=== PATIENT | female | born 1980 | race Caucasian/White ===

== ENCOUNTER 2016-09-20 10:15 | Emergency (ER) | payer SELFPAY ==
[2016-09-20 11:18] VITALS: BP 114/75
--- NOTE | 2016-09-20 11:55 | UC ---
General HPI - HPI Summary HPI Summary: patient noticed a small lump uner the right axilla this morning. She denies any illness. patient is a long time smoker. - History of Current Complaint Chief Complaint: UCSkin Stated Complaint: LUMP UNDER ARM Time Seen by Provider: 09/20/16 11:39 Hx Obtained From: Patient Onset/Duration: Sudden Onset, Lasting Hours Timing: Constant Onset Severity: Mild Current Severity: Mild Pain Intensity: 4 Pain Location at: right axilla - Allergy/Home Medications Allergies/Adverse Reactions: Allergies Allergy/AdvReac Type Severity Reaction Status Date / Time environmental Allergy Unknown Uncoded 09/20/16 11:14 Reaction Details Home Medications: Home Medications NK [No Home Medications Reported] 09/20/16 [History Confirmed 09/20/16] PMH/Surg Hx/FS Hx/Imm Hx Previously Healthy: Yes Endocrine History Of: Denies: Diabetes, Thyroid Disease Cardiovascular History Of: Denies: Cardiac Disorders, Hypertension Respiratory History Of: Reports: Asthma Denies: COPD GI/ History Of: Denies: Ulcer - Surgical History Surgical History: Yes Surgery Procedure, Year, and Place: , 2008, [place]; T&A and Ear Tubes , ~1985, [place] - Family History Known Family History: Positive: Hypertension - Social History Alcohol Use: Rare Substance Use Type: None Smoking Status (MU): Heavy Every Day Tobacco Smoker Type: Cigarettes Amount Used/How Often: 1 PPD Length of Time of Smoking/Using Tobacco: 15 Years Have You Smoked in the Last Year: Yes - Immunization History Most Recent Influenza Vaccination: Not the 2015/2016 Season Review of Systems Constitutional: Negative Skin: Negative Eyes: Negative ENT: Negative Respiratory: Cough Cardiovascular: Negative, Other - lump under right arm Gastrointestinal: Negative Genitourinary: Negative Motor: Negative Neurovascular: Negative Musculoskeletal: Negative Neurological: Negative Psychological: Negative All Other Systems Reviewed And Are Negative: Yes Physical Exam Triage Information Reviewed: Yes Appearance: Well-Appearing, Well-Nourished, Pain Distress Vital Signs: Initial Vital Signs Temp 98.3 F 09/20/16 11:10 Pulse 88 09/20/16 11:10 Resp 16 09/20/16 11:10 BP 114/75 09/20/16 11:10 Pulse Ox 100 09/20/16 11:10 Vital Signs Reviewed: Yes Eye Exam: Normal Eyes: Positive: Conjunctiva Clear ENT Exam: Normal ENT: Positive: Normal ENT inspection, Pharynx normal, TMs normal Dental Exam: Normal Neck exam: Normal Neck: Positive: Supple, Nontender, Enlarged Nodes @ - under right axilla, moveable, discreet, Respiratory Exam: Normal Respiratory: Positive: Chest non-tender, Lungs clear, Normal breath sounds Cardiovascular Exam: Normal Cardiovascular: Positive: RRR, No Murmur, Pulses Normal Abdominal Exam: Normal Abdomen Description: Positive: Nontender, No Organomegaly, Soft Bowel Sounds: Positive: Present Musculoskeletal Exam: Normal Musculoskeletal: Positive: Strength Intact, ROM Intact, No Edema Neurological Exam: Normal Neurological: Positive: Alert, Muscle Tone Normal Psychological Exam: Normal Skin Exam: Normal Course/Dx - Course Course Of Treatment: hx obtained, medication reviewed, exam performed, educated on swollen lymph nodes and smoking cessation. - Differential Dx - Multi-Symptom Provider Diagnoses: lymphadenopathy, right axilla Discharge - Discharge Plan Condition: Stable Disposition: HOME Patient Education Materials: Lymphadenopathy (ED) Referrals: Elidia Gomes MD [Primary Care Provider] - Additional Instructions: The lump you feel in your right armpit is a swollen lymphnode. I only feel one swollen lump, i do not feel any others at this time. However, do to your history of smoking, if the lump does not go away in a few days, I would recommend follow up at your primary provider for further evaluation. Swollen lymph nodes can be from your body fighting off an infection, it can also be a more serious finding related to cancer. So it is important to monitor and follow up if needed.
== END 2016-09-20 11:54 | disposition home or self-care (01) ==
LOC: UCCORT 10:15
DX: R59.1 Generalized enlarged lymph nodes (principal); F17.210 Nicotine dependence, cigarettes, uncomplicated
CPT/HCPCS: 99211; G0463

== ENCOUNTER 2017-01-20 21:30 | Emergency (ER) | payer SELFPAY ==
[2017-01-20 21:44] VITALS: BP 108/67
--- NOTE | 2017-01-20 22:41 | UC ---
Lower Extremity/Ankle HPI - HPI Summary HPI Summary: The patient comes in today for: 1. Left leg pain: Onset: 2 hours ago. Palliative/provocative: Walking and going up steps with the left leg makes it worse. Rest makes it better. Quality: Sharp pain Region: Lower left anterior thigh. Severity:8/10 at rest. Standing makes it about 10/10 Time: Constant. Associated symptoms: Event: She was in a softball game. She jumped "to do something," and it hurt at that time. But, it got better. She was up to bat later and while running it got worse. Rx: Nothing. Previous injury: None. * - History of Current Complaint Chief Complaint: UCLowerExtremity Stated Complaint: LEFT LEG PAIN Time Seen by Provider: 01/20/17 22:36 Hx Obtained From: Patient Hx Last Menstrual Period: 2 wks ago - Allergies/Home Medications Allergies/Adverse Reactions: Allergies Allergy/AdvReac Type Severity Reaction Status Date / Time environmental Allergy Eyes Uncoded 01/20/17 21:37 Itchy/Swollen/Red/Watery Home Medications: Home Medications NK [No Home Medications Reported] 01/20/17 [History Confirmed 01/20/17] PMH/Surg Hx/FS Hx/Imm Hx Previously Healthy: No Endocrine History Of: Denies: Diabetes, Thyroid Disease, Hyperthyroidism, Hypothyroidism, Dyslipidemia Cardiovascular History Of: Denies: Cardiac Disorders, Hypertension, Pacemaker/ICD, Myocardial Infarction , Congestive Heart Failure, Atrial Fibrillation, Deep Vein Thrombosis, Bleeding Disorders Respiratory History Of: Reports: Asthma - She is not on any medications for asthma at this time. Denies: COPD, Bronchitis, Pneumonia, Pulmonary Embolism GI/ History Of: Denies: Gastroesophageal Reflux, Ulcer, Gastrointestinal Bleed, Gall Bladder Disease, Kidney Stones, Diverticulitis, Renal Disease, Urosepsis Neurological History Of: Denies: TIA, CVA, Dementia, Seizures, Migraine Psychological History Of: Denies: Anxiety, Depression, Bipolar Disorder, Schizophrenia, Post Traumatic Stress Disorder Cancer History Of: Denies: Lung Cancer, Colorectal Cancer, Breast Cancer, Prostate Cancer, Cervical Cancer Other History Of: Negative For: HIV, Hepatitis B, Hepatitis C, Anticoagulant Therapy - Surgical History Surgical History: Yes Surgery Procedure, Year, and Place: , 2008, [place]; T&A and Ear Tubes , ~[place] - Family History Known Family History: Positive: Hypertension, Diabetes - Social History Occupation: Employed Full-time Alcohol Use: None Substance Use Type: None Smoking Status (MU): Heavy Every Day Tobacco Smoker Type: Cigarettes Amount Used/How Often: 1/2 PPD Length of Time of Smoking/Using Tobacco: 15 Years Have You Smoked in the Last Year: Yes - Immunization History Most Recent Influenza Vaccination: Not the Season Review of Systems Constitutional: Negative Skin: Negative Eyes: Negative ENT: Negative Respiratory: Negative Cardiovascular: Negative Gastrointestinal: Negative Genitourinary: Negative All Other Systems Reviewed And Are Negative: Yes Physical Exam Triage Information Reviewed: Yes Appearance: Well-Appearing, No Pain Distress - when sitting., Well-Nourished Vital Signs: Initial Vital Signs Temp 99.0 F 01/20/17 21:38 Pulse 105 01/20/17 21:38 Resp 16 01/20/17 21:38 BP 108/67 01/20/17 21:38 Pulse Ox 99 01/20/17 21:38 Vital Signs Reviewed: Yes Eyes: Positive: Conjunctiva Clear. Negative: Discharge ENT: Positive: Hearing grossly normal. Negative: Pharyngeal erythema, Nasal congestion, Nasal drainage, TM bulging, TM dull, TM red, Tonsillar swelling, Tonsillar exudate, Trismus Dental: Negative: Gross Decay/Caries @, Dental Fracture @ Neck: Positive: Supple, Nontender, No Lymphadenopathy. Negative: Nuchal Rigidity Respiratory: Positive: Chest non-tender, Lungs clear, No respiratory distress, No accessory muscle use. Negative: Crackles, Wheezing Cardiovascular: Positive: RRR, No Murmur Abdomen Description: Positive: Nontender, No Organomegaly, Soft. Negative: Distended, Guarding Musculoskeletal: Positive: Other: - Left leg: There is fullness of the lower anterior thigh musculature/quadricepts. There is no ecchymosis. It is tender to palpation. Contraction of the quadriceps makes it worse. Neurological: Positive: Alert, Muscle Tone Normal Psychological: Positive: Age Appropriate Behavior, Consolable Skin: Negative: rashes, breakdown Diagnostics - Radiology No standard instances Xray Interpretation: No Acute Changes Radiology Interpretation Completed By: ED Physician Lower Extremity Course/Dx - Course Course Of Treatment: Patient was told that the x-ray did not show any problems that I could see. Suggest that she try a knee immobilizer. She agreed. - Differential Dx/Diagnosis Provider Diagnoses: Left quadricepts tear. Discharge - Discharge Plan Condition: Stable Disposition: HOME Referrals: Elidia Gomes MD [Primary Care Provider] - En Lozada MD [Medical Doctor] - As Soon As Possible (Please contact Dr. Lozada as soon as you can for an appointment to follow you for your torn left quadriceps muscle. If you get worse between now and then, please see your primary care provider or us for re-evaluation. )
[2017-01-20] MEDS ORDERED: Ibuprofen TAB* 400 MG PO ONE (22:45)
--- NOTE | 2017-01-21 07:26 | RAD ---
INDICATION: Left femur injury. TECHNIQUE: 2 views of the left femur were obtained. FINDINGS: The bones are normal alignment. No fracture is seen. IMPRESSION: NO EVIDENCE FOR FRACTURE.
== END 2017-01-20 23:29 | disposition home or self-care (01) ==
LOC: UCCORT 21:30
DX: S76.112A Strain of left quadriceps muscle, fascia and tendon, initial encounter (principal); X58.XXXA Exposure to other specified factors, initial encounter; Y93.64 Activity, baseball; Y92.320 Baseball field as the place of occurrence of the external cause; J45.909 Unspecified asthma, uncomplicated; F17.210 Nicotine dependence, cigarettes, uncomplicated
CPT/HCPCS: 99213; A9270-GY; G0463

== ENCOUNTER 2017-05-23 08:30 | Emergency (ER) | payer OTHER ==
[2017-05-23 08:39] VITALS: BP 97/64
--- NOTE | 2017-05-23 09:02 | UC ---
Eye Complaint HPI - HPI Summary HPI Summary: 36 year old female presents with eye discharge. "I think I have pink eye". Pt states she woke up w/ RIGHT eye draining/crusting/itching. No eye pain. No FB or trauma. No contacts. Left eye not affected. No vision changes. [ End ] - History of Current Complaint Chief Complaint: UCEye Stated Complaint: EYE COMPLAINT Time Seen by Provider: 05/23/17 08:51 Hx Obtained From: Patient Hx Last Menstrual Period: 05/19/17 Onset/Duration: Sudden Onset Timing: Constant Associated Signs And Symptoms: Positive: Drainage (Clear), Drainage (Purulent). Negative: Photophobia Related History: Similar Episode - Risk Factors Penetrating Injury Risk Factor: Negative Globe Rupture Risk Factors: Negative Acute Glaucoma Risk Factors: Negative - Allergies/Home Medications Allergies/Adverse Reactions: Allergies Allergy/AdvReac Type Severity Reaction Status Date / Time environmental Allergy Eyes Uncoded 05/23/17 08:36 Itchy/Swollen/Red/Watery PMH/Surg Hx/FS Hx/Imm Hx Previously Healthy: Yes Other History Of: Negative For: HIV, Hepatitis B, Hepatitis C, Anticoagulant Therapy - Surgical History Surgical History: Yes Surgery Procedure, Year, and Place: , 2008, [place]; T&A and Ear Tubes , ~1985, [place] - Family History Known Family History: Positive: Hypertension, Diabetes - Social History Occupation: Employed Full-time - [employer] Lives: With Family Alcohol Use: None Substance Use Type: None Smoking Status (MU): Heavy Every Day Tobacco Smoker Type: Cigarettes Amount Used/How Often: 1/2 PPD Length of Time of Smoking/Using Tobacco: 15 Years Have You Smoked in the Last Year: Yes Cessation Counseling: Patient Advised to Stop - Immunization History Most Recent Influenza Vaccination: "I never get flu shot" Review of Systems Eyes: Drainage, Eye Redness Is Patient Immunocompromised?: No All Other Systems Reviewed And Are Negative: Yes Physical Exam Triage Information Reviewed: Yes Appearance: Well-Appearing, No Pain Distress, Well-Nourished Vital Signs: Initial Vital Signs Temp 98.4 F 05/23/17 08:36 Pulse 80 05/23/17 08:36 Resp 16 05/23/17 08:36 BP 97/64 05/23/17 08:36 Pulse Ox 100 05/23/17 08:36 Vital Signs Reviewed: Yes Eye Exam: Normal Eyes: Positive: Conjunctiva Inflamed, Discharge - right ENT Exam: Normal Dental Exam: Normal Neck exam: Normal Neck: Positive: 1 Respiratory Exam: Normal Cardiovascular Exam: Normal Musculoskeletal Exam: Normal Neurological Exam: Normal Psychological Exam: Normal Skin Exam: Normal Eye Complaint Course/Dx - Differential Dx/Diagnosis Differential Diagnosis/HQI/PQRI: Conjunctivitis Provider Diagnoses: conjunctivitis Discharge - Discharge Plan Condition: Good Disposition: HOME Prescriptions: Polymyx/Trimethoprim OPTH* [Polytrim OPHTH*] 1 drop RIGHT EYE Q3H #1 btl Patient Education Materials: Conjunctivitis (ED) Forms: *Work Release Referrals: Elidia Gomes MD [Primary Care Provider] - 3 Days
== END 2017-05-23 09:14 | disposition home or self-care (01) ==
LOC: UCCORT 08:30
DX: H10.31 Unspecified acute conjunctivitis, right eye (principal); F17.210 Nicotine dependence, cigarettes, uncomplicated; Z71.6 Tobacco abuse counseling
CPT/HCPCS: 99212; G0463

== ENCOUNTER 2017-07-30 13:47 | Emergency (ER) | payer OTHER ==
[2017-07-30 14:15] VITALS: BP 104/62
--- NOTE | 2017-07-30 15:01 | UC ---
Lower Extremity/Ankle HPI - HPI Summary HPI Summary: Pt c/o pain right anterior, medial lower leg pain. Pt reports that she hit lower leg against car door 2 days ago. Pain with ambulation, standing and walking up stairs. - History of Current Complaint Chief Complaint: UCLowerExtremity Stated Complaint: RIGHT LEG PAIN Time Seen by Provider: 07/30/17 14:38 Hx Obtained From: Patient Hx Last Menstrual Period: 07/04/17 ?: No Onset/Duration: Sudden Onset, Lasting Days, Still Present Severity Initially: Mild Severity Currently: Mild Aggravating Factor(s): Standing, Ambulation Alleviating Factor(s): Rest, Elevation Able to Bear Weight: Yes - Risk Factors Gout Risk Factors: Negative DVT Risk Factors: Smoking - Allergies/Home Medications Allergies/Adverse Reactions: Allergies Allergy/AdvReac Type Severity Reaction Status Date / Time environmental Allergy Eyes Uncoded 07/30/17 14:14 Itchy/Swollen/Red/Watery Home Medications: Home Medications Ibuprofen TAB* [Motrin TAB* 800 MG] 800 mg PO ONCE 07/30/17 [History Confirmed 07/30/17] PMH/Surg Hx/FS Hx/Imm Hx Previously Healthy: Yes Other History Of: Negative For: HIV, Hepatitis B, Hepatitis C, Anticoagulant Therapy - Surgical History Surgical History: Yes Surgery Procedure, Year, and Place: , [place]; T&A and Ear Tubes , ~1985, [place] - Family History Known Family History: Positive: Hypertension, Diabetes - Social History Occupation: Employed Full-time Lives: With Family Alcohol Use: None Substance Use Type: None Smoking Status (MU): Heavy Every Day Tobacco Smoker Type: Cigarettes Amount Used/How Often: 1/2 PPD Length of Time of Smoking/Using Tobacco: 15 Years Have You Smoked in the Last Year: Yes - Immunization History Most Recent Influenza Vaccination: "I never get flu shot" Vaccination Up to Date: Yes Review of Systems Constitutional: Negative Skin: Bruising Eyes: Negative ENT: Negative Respiratory: Negative Cardiovascular: Negative Gastrointestinal: Negative Genitourinary: Negative Motor: Negative Neurovascular: Negative Musculoskeletal: Arthralgia - right proximal tibia, anterior, Myalgia Neurological: Negative Psychological: Negative Is Patient Immunocompromised?: No All Other Systems Reviewed And Are Negative: Yes Physical Exam Triage Information Reviewed: Yes Appearance: Well-Appearing Vital Signs: Initial Vital Signs Temp 98.7 F 07/30/17 14:10 Pulse 89 07/30/17 14:10 Resp 16 07/30/17 14:10 BP 104/62 07/30/17 14:10 Pulse Ox 99 07/30/17 14:10 Vital Signs Reviewed: Yes Eye Exam: Normal ENT Exam: Normal Dental Exam: Other Dental: Positive: Gross Decay/Caries @ - generalized Neck exam: Normal Respiratory: Positive: No respiratory distress Musculoskeletal Exam: Other Musculoskeletal: Positive: Other: - tenderness, right tibia, anterior medial aspect Neurological Exam: Normal Psychological Exam: Normal Skin Exam: Normal Lower Extremity Course/Dx - Differential Dx/Diagnosis Differential Diagnosis/HQI/PQRI: Contusion Provider Diagnoses: right lower leg contusion. IMPRESSION: No fracture of the right tibia or fibula is noted. Discharge - Discharge Plan Condition: Stable Disposition: HOME Patient Education Materials: Contusion in Adults (ED) Forms: *Work Release Referrals: Elidia Gomes MD [Primary Care Provider] - If Needed Additional Instructions: Xray report:
--- NOTE | 2017-07-30 15:03 | RAD ---
Indication: Right tibial pain. 2 views of the right tibia and fibula demonstrates no fracture. No other bone or joint abnormality is identified. IMPRESSION: No fracture of the right tibia or fibula is noted.
== END 2017-07-30 15:19 | disposition home or self-care (01) ==
LOC: UCCORT 13:47
DX: S80.11XA Contusion of right lower leg, initial encounter (principal); W22.8XXA Striking against or struck by other objects, initial encounter; Y92.9 Unspecified place or not applicable; F17.210 Nicotine dependence, cigarettes, uncomplicated
CPT/HCPCS: 99211; G0463

== ENCOUNTER 2017-10-24 12:07 | Emergency (ER) | payer OTHER | END 2017-10-24 12:10 | disposition left against medical advice (07) | LOC: UCCORT 12:07 | DX: S69.92XA Unspecified injury of left wrist, hand and finger(s), initial encounter (principal); Z53.21 Procedure and treatment not carried out due to patient leaving prior to being seen by health care provider ==

== ENCOUNTER 2018-01-31 20:47 | Emergency (ER) | payer OTHER, MEDICAID ==
[2018-01-31 21:06] VITALS: BP 101/70
--- NOTE | 2018-01-31 21:24 | UC ---
Dental HPI - HPI Summary HPI Summary: 37 yo WF s/p TOTAL tooth extraction of ALL of her teeth 2 days ago presents for a work note that she is unable to work due to "mouth soreness". Eating applesauce and broth, taking Augmentin, Ibuprofen and Percocets. Denies f/c/n/v/ d - History of Current Complaint Chief Complaint: UCDentalProblem Stated Complaint: MOUTH COMPLAINT Time Seen by Provider: 01/31/18 21:04 Hx Obtained From: Patient Hx Last Menstrual Period: 07/04/17 ?: Yes Onset/Duration: Sudden Onset Severity: Moderate Pain Intensity: 10 Aggravating Factor(s): Chewing Alleviating Factor(s): Nothing Related History: Other - Allergies/Home Medications Allergies/Adverse Reactions: Allergies Allergy/AdvReac Type Severity Reaction Status Date / Time environmental Allergy Eyes Uncoded 01/31/18 21:06 Itchy/Swollen/Red/Watery Home Medications: Home Medications Amoxicillin/Clavulanate TAB* [Augmentin TAB 875*] 875 mg PO BID 01/31/18 [ History Confirmed 01/31/18] oxyCODONE/Acetamin 5/325 MG* [Percocet 5/325 TAB*] 1 tab PO Q6H PRN 01/31/18 [ History Confirmed 01/31/18] PMH/Surg Hx/FS Hx/Imm Hx - Additional Past Medical History Additional PMH: POOR DENTITION, Previously Healthy: No Other History Of: Negative For: HIV, Hepatitis B, Hepatitis C, Anticoagulant Therapy - Surgical History Surgical History: Yes Surgery Procedure, Year, and Place: , 2008, [place]; T&A and Ear Tubes , ~1985, [place]. Dental surgery 01/2018 - Family History Known Family History: Positive: Hypertension, Diabetes - Social History Alcohol Use: None Substance Use Type: None Smoking Status (MU): Heavy Every Day Tobacco Smoker Type: Cigarettes Amount Used/How Often: 1/2 PPD Length of Time of Smoking/Using Tobacco: 15 Years Have You Smoked in the Last Year: Yes - Immunization History Most Recent Influenza Vaccination: "I never get flu shot" Vaccination Up to Date: Yes Review of Systems Constitutional: Negative Skin: Negative Eyes: Negative ENT: Dental Pain Respiratory: Negative Cardiovascular: Negative Gastrointestinal: Negative Genitourinary: Negative Motor: Negative Neurovascular: Negative Musculoskeletal: Negative Neurological: Negative Psychological: Negative All Other Systems Reviewed And Are Negative: Yes Physical Exam Triage Information Reviewed: Yes Appearance: Ill-Appearing, Thin Vital Signs: Initial Vital Signs Temp 37.6 C 01/31/18 20:58 Pulse 88 01/31/18 20:58 Resp 16 01/31/18 20:58 BP 101/70 01/31/18 20:58 Pulse Ox 99 01/31/18 20:58 Vital Signs Reviewed: Yes Eye Exam: Normal ENT: Positive: Other - edentulous dentition, with post extraction sutures throught oral cavity along the gingiva Dental Exam: Normal Neck exam: Normal Neck: Positive: 1 Respiratory Exam: Normal Cardiovascular Exam: Normal Abdominal Exam: Normal Musculoskeletal Exam: Normal Neurological Exam: Normal Psychological Exam: Normal Skin Exam: Normal Dental Complaint Course/Dx - Course Course Of Treatment: EDENTULOUS DENTITION s/p major total teeth extraction POD#3 - no teeth left. Work note to take 1 week off - Differential Dx/Diagnosis Differential Diagnosis/Dx: Dental Abscess, Dental Caries Provider Diagnoses: post-op pain after total teeth extraction. edentulous dentition Discharge - Sign-Out/Discharge Documenting (check all that apply): Discharge/Admit/Transfer - Discharge Plan Condition: Stable Disposition: HOME Patient Education Materials: Tooth Extraction (DC) Forms: *Work Release Referrals: Elidia Gomes MD [Primary Care Provider] - - Billing Disposition and Condition Condition: STABLE Disposition: HOME
== END 2018-01-31 21:39 | disposition home or self-care (01) ==
LOC: UCCORT 20:47
DX: K08.109 Complete loss of teeth, unspecified cause, unspecified class (principal); K06.9 Disorder of gingiva and edentulous alveolar ridge, unspecified; F17.210 Nicotine dependence, cigarettes, uncomplicated
CPT/HCPCS: 99211; G0463

== ENCOUNTER 2018-10-08 13:22 | Emergency (ER) | payer MEDICAID, OTHER ==
[2018-10-08 13:46] VITALS: BP 99/68
--- NOTE | 2018-10-08 14:06 | UC ---
Lower Extremity/Ankle HPI - HPI Summary HPI Summary: L knee pain after a fall yesterday. - History of Current Complaint Chief Complaint: UCLowerExtremity Stated Complaint: LEFT KNEE INJURY - S/P FALL Time Seen by Provider: 10/08/18 13:45 Hx Obtained From: Patient Hx Last Menstrual Period: 2 weeks Pain Intensity: 5 Pain Scale Used: 0-10 Numeric Aggravating Factor(s): Standing, Ambulation - limping Alleviating Factor(s): Rest Able to Bear Weight: No - Allergies/Home Medications Allergies/Adverse Reactions: Allergies Allergy/AdvReac Type Severity Reaction Status Date / Time environmental Allergy Eyes Uncoded 10/08/18 13:46 Itchy/Swollen/Red/Watery PMH/Surg Hx/FS Hx/Imm Hx Previously Healthy: Yes Other History Of: Negative For: HIV, Hepatitis B, Hepatitis C, Anticoagulant Therapy - Surgical History Surgical History: Yes Surgery Procedure, Year, and Place: , 2008, [place]; T&A and Ear Tubes , ~1985, [place]. Dental surgery 01/2018 - Family History Known Family History: Positive: Hypertension, Diabetes - Social History Alcohol Use: None Substance Use Type: None Smoking Status (MU): Heavy Every Day Tobacco Smoker Type: Cigarettes Amount Used/How Often: 1/2 PPD Length of Time of Smoking/Using Tobacco: 15 Years Have You Smoked in the Last Year: Yes - Immunization History Most Recent Influenza Vaccination: "I never get flu shot" Vaccination Up to Date: Yes Review of Systems All Other Systems Reviewed And Are Negative: Yes Constitutional: Positive: Negative Skin: Negative: Rash Respiratory: Positive: Negative Cardiovascular: Positive: Negative Motor: Negative: Decreased ROM - L knee Musculoskeletal: Positive: Arthralgia - L knee. Negative: Edema Neurological: Negative: Weakness, Paresthesia, Numbness Physical Exam Triage Information Reviewed: Yes Appearance: Well-Appearing Vital Signs: Initial Vital Signs Temp 99.4 F 10/08/18 13:36 Pulse 105 10/08/18 13:36 Resp 18 10/08/18 13:36 BP 99/68 10/08/18 13:36 Pulse Ox 98 10/08/18 13:36 Vital Signs Reviewed: Yes Musculoskeletal: Positive: Strength Intact - L knee, ROM Intact - but w/ pain at L knee, No Edema - at L knee, Other: - moderate tenderness at L knee w/ some bruising. Diagnostics - Radiology No standard instances Radiology Interpretation Completed By: Radiologist Summary of Radiographic Findings: IMPRESSION: NO EVIDENCE FOR FRACTURE. Lower Extremity Course/Dx - Course Course Of Treatment: L knee pain after fall yesterday. exam demonstrated pain w / ROM, no instability. nsaids for pain. xray neg for fx. will william up to help . - Differential Dx/Diagnosis Differential Diagnosis/HQI/PQRI: Arthritis, Contusion, Fracture (Closed) Provider Diagnosis: Knee pain Discharge - Sign-Out/Discharge Documenting (check all that apply): Patient Departure All imaging exams completed and their final reports reviewed: Yes - Discharge Plan Condition: Good Disposition: HOME Prescriptions: Ibuprofen TAB* [Advil TAB*] 200 mg PO Q6H PRN 7 Days #21 tab PRN Reason: Pain Patient Education Materials: Knee Pain (ED) Referrals: No Primary Care Phys,NOPCP [Primary Care Provider] - Additional Instructions: follow up with your pcp if not improving. - Billing Disposition and Condition Condition: GOOD Disposition: Home
== END 2018-10-08 14:47 | disposition home or self-care (01) ==
LOC: UCCORT 13:22
DX: M25.562 Pain in left knee (principal); S80.02XA Contusion of left knee, initial encounter; F17.210 Nicotine dependence, cigarettes, uncomplicated; Z91.09 Other allergy status, other than to drugs and biological substances; W19.XXXA Unspecified fall, initial encounter; Y92.9 Unspecified place or not applicable
CPT/HCPCS: 99213; G0463

== ENCOUNTER 2019-01-04 15:49 | Emergency (ER) | payer SELFPAY ==
[2019-01-04 16:21] VITALS: BP 106/68
--- NOTE | 2019-01-04 16:35 | UC ---
Neck Pain HPI - HPI Summary HPI Summary: 38 -year-old female who awakened this morning with left-sided neck strain. No known trauma. She states the pain does radiate from her neck into her left shoulder. Denies any nausea, vomiting, no diaphoresis, no chest pain. She is able to replicate the pain with movement of her neck. She is also a smoker. - History of Current Complaint Chief Complaint: UCUpperExtremity Stated Complaint: LEFT SIDE NECK/ARM PAIN Time Seen by Provider: 01/04/19 16:13 Hx Obtained From: Patient Hx Last Menstrual Period: 01/04/19 ?: No Onset/Duration Of Injury/Symptoms: Hours - Pain since this morning. Mechanism Of Injury: No Known Trauma Timing: Intermittent Episodes - Pain is not constant however she feels it more when she is turning her head through range of motion. Onset/Duration: Other - awakened with the left-sided neck pain this morning. Severity: Moderate Pain Intensity: 9 Character: Spasmotic Aggravating Factors: Movement Alleviating Factors: Position Associated Signs & Symptoms: Positive: Negative - Allergies/Home Medications Allergies/Adverse Reactions: Allergies Allergy/AdvReac Type Severity Reaction Status Date / Time environmental Allergy Eyes Uncoded 01/04/19 16:21 Itchy/Swollen/Red/Watery Home Medications: Home Medications Ibuprofen TAB* [Advil TAB*] 800 mg PO Q6H PRN 01/04/19 [History] PMH/Surg Hx/FS Hx/Imm Hx Previously Healthy: Yes Other History Of: Negative For: HIV, Hepatitis B, Hepatitis C, Anticoagulant Therapy - Surgical History Surgical History: Yes Surgery Procedure, Year, and Place: , 2008, [place]; T&A and Ear Tubes , ~1985, [place]. Dental surgery 01/2018 - Family History Known Family History: Positive: Hypertension, Diabetes - Social History Occupation: Employed Full-time Alcohol Use: None Substance Use Type: None Smoking Status (MU): Heavy Every Day Tobacco Smoker Type: Cigarettes Amount Used/How Often: 1/2 PPD Length of Time of Smoking/Using Tobacco: 15 Years Have You Smoked in the Last Year: Yes - Immunization History Most Recent Influenza Vaccination: "I never get flu shot" Vaccination Up to Date: Yes Review of Systems All Other Systems Reviewed And Are Negative: Yes Respiratory: Negative: Shortness Of Breath Cardiovascular: Negative: Chest Pain Gastrointestinal: Negative: Abdominal Pain Motor: Positive: Negative Neurovascular: Positive: Negative Musculoskeletal: Positive: Decreased ROM - Patient has some decreased range of motion when she is turning her head to the right with pain in the cervical muscle area and trapezius muscle. She does have point tenderness in the mid trapezius muscle left side. No erythema, deformity, swelling or bruising is noted. Neurological: Positive: Negative Psychological: Positive: Negative Is Patient Immunocompromised?: No Physical Exam Triage Information Reviewed: Yes Appearance: Well-Appearing, No Pain Distress, Well-Nourished Vital Signs: Initial Vital Signs Temp 99.6 F 01/04/19 16:17 Pulse 88 01/04/19 16:17 Resp 18 01/04/19 16:17 BP 106/68 01/04/19 16:17 Pulse Ox 100 01/04/19 16:17 Vital Signs Reviewed: Yes ENT: Positive: Normal ENT inspection, Pharynx normal, TMs normal, Uvula midline Neck: Positive: Supple, No Lymphadenopathy - Patient has some decreased range of motion when she is turning her head to the right with pain in the cervical muscle area and trapezius muscle. She does have point tenderness in the mid trapezius muscle left side. No erythema, deformity, swelling or bruising is noted. Respiratory: Positive: Lungs clear, Normal breath sounds, No respiratory distress, No accessory muscle use Cardiovascular: Positive: RRR, No Murmur, Pulses Normal, Brisk Capillary Refill Musculoskeletal: Positive: Strength Intact, Other: - Patient has pain in the left trapezius muscle with rotation of her head. Neurological: Positive: Alert, Muscle Tone Normal Neck Pain Course/Dx - Course Course Of Treatment: 38-year-old female with a left trapezius muscle strain. She states the pain radiates from her left side of her neck into her shoulder. She does have point tenderness to the left trapezius muscle and the muscle itself feels like it is and mild spasm. She has good peripheral pulses neuro sensation and capillary refill. I do not feel this is cardiac in nature however she does have a brother who at age 36 had a heart attack. She's had no nausea, diaphoresis, chest pain or palpitations. - Differential Dx/Diagnosis Provider Diagnosis: Strain of left trapezius muscle Discharge - Sign-Out/Discharge Documenting (check all that apply): Patient Departure All imaging exams completed and their final reports reviewed: No Studies - Discharge Plan Condition: Fair Disposition: HOME Patient Education Materials: Cervical Strain (DC) Referrals: No Primary Care Phys,NOPCP [Primary Care Provider] - [facility] [Outside] Additional Instructions: May take Motrin every 8 hours for pain. Apply heat to the sore area. Limit movements that cause pain. Definite follow-up with your primary care provider if no improvement in 3 or 4 days. - Billing Disposition and Condition Condition: FAIR Disposition: Home - Attestation Statements Provider Attestation: Per institutional requirements, I have reviewed the chart, however, I was not consulted specifically or made aware of this patient by the midlevel provider. I did not personally evaluate, interact with , or disposition this patient.
== END 2019-01-04 16:39 | disposition home or self-care (01) ==
LOC: UCCORT 15:49
DX: S46.812A Strain of other muscles, fascia and tendons at shoulder and upper arm level, left arm, initial encounter (principal); X58.XXXA Exposure to other specified factors, initial encounter; Y92.9 Unspecified place or not applicable; F17.210 Nicotine dependence, cigarettes, uncomplicated
CPT/HCPCS: 99211; G0463

== ENCOUNTER 2019-03-12 19:58 | Emergency (ER) | payer OTHER ==
[2019-03-12] MEDS ORDERED: Naproxen TAB* 250 MG PO ONE (20:09)
[2019-03-12 20:13] VITALS: BP 108/68
--- NOTE | 2019-03-12 20:38 | UC ---
Hand/Wrist HPI - HPI Summary HPI Summary: 38-year-old female presents with complaints of pain to the left ring finger. States just prior to arrival she got her wedding ring caught in the drive- through window causing injury to the proximal finger. Complains of pain over the mid proximal phalanx and PIP joint. Patient removed her rings prior to arrival. Denies numbness or tingling. - History Of Current Complaint Chief Complaint: UCUpperExtremity Stated Complaint: WC - LEFT RING FINGER INJURY Time Seen by Provider: 03/12/19 20:09 Hx Obtained From: Patient Hx Last Menstrual Period: 02/26/19 Pain Intensity: 10 - Allergies/Home Medications Allergies/Adverse Reactions: Allergies Allergy/AdvReac Type Severity Reaction Status Date / Time environmental Allergy Eyes Uncoded 03/12/19 20:13 Itchy/Swollen/Red/Watery PMH/Surg Hx/FS Hx/Imm Hx Previously Healthy: Yes - Denies significant PMH Other History Of: Negative For: HIV, Hepatitis B, Hepatitis C, Anticoagulant Therapy - Surgical History Surgical History: Yes Surgery Procedure, Year, and Place: , 2008, [place]; T&A and Ear Tubes , ~1985, [place]. Dental surgery 01/2018 - Family History Known Family History: Positive: Hypertension, Diabetes - Social History Occupation: Employed Full-time Lives: With Family Alcohol Use: None Substance Use Type: None Smoking Status (MU): Heavy Every Day Tobacco Smoker Type: Cigarettes Amount Used/How Often: 1/2 PPD Length of Time of Smoking/Using Tobacco: 15 Years Have You Smoked in the Last Year: Yes - Immunization History Most Recent Influenza Vaccination: "I never get flu shot" Vaccination Up to Date: Yes Review of Systems All Other Systems Reviewed And Are Negative: Yes Constitutional: Positive: Negative Skin: Negative: Bruising Respiratory: Positive: Negative Cardiovascular: Positive: Negative Gastrointestinal: Positive: Negative Genitourinary: Positive: Negative Motor: Negative: Weakness Neurovascular: Negative: Decreased Sensation Musculoskeletal: Positive: Other: - See HPI Neurological: Positive: Negative Is Patient Immunocompromised?: No Physical Exam - Summary Physical Exam Summary: GENERAL APPEARANCE: Well developed, well nourished, alert and cooperative, and appears to be in no acute distress. CARDIAC: Normal S1 and S2. No S3, S4 or murmurs. Rhythm is regular. There is no peripheral edema, cyanosis or pallor. Extremities are warm and well perfused. Capillary refill is less than 2 seconds. Peripheral pulses intact. LUNGS: Clear to auscultation without rales, rhonchi, wheezing or diminished breath sounds. ABDOMEN: Positive bowel sounds. Soft, nondistended, nontender. No guarding or rebound. No masses or hepatosplenomegally. MUSKULOSKELETAL: Normal muscular development. Normal gait. EXTREMITIES: Tenderness without gross deformity or ecchymosis to the the proximal phalanx and PIP of the left ring finger. Circulation and sensation intact. SKIN: Skin normal color, texture and turgor with no lesions or eruptions. Triage Information Reviewed: Yes Vital Signs: Initial Vital Signs Temp 99.3 F 03/12/19 20:10 Pulse 87 03/12/19 20:10 Resp 16 03/12/19 20:10 BP 108/68 03/12/19 20:10 Pulse Ox 99 03/12/19 20:10 Vital Signs Reviewed: Yes Procedures - Splinting Left 4th Digit Location: left ring finger Pre-Made Type: metal Splint: volar Pre-Proc Neuro Vasc Exam: normal Post-Proc Neuro Vasc Exam: normal Diagnostics - Radiology No standard instances Radiology Interpretation Completed By: ED Physician - Probable oblique nondisplaced fracture of the proximal phalanx of the left ring finger Hand/Wrist Course/Dx - Course Course Of Treatment: 38-year-old female presents with complaints of pain to the left ring finger. States just prior to arrival she got her wedding ring caught in the drive- through window causing injury to the proximal finger. Complains of pain over the mid proximal phalanx and PIP joint. Patient removed her rings prior to arrival. Denies numbness or tingling. Afebrile. Vital signs stable. Patient had tenderness without gross deformity or ecchymosis to the the proximal phalanx and PIP of the left ring finger. Circulation and sensation intact. X- ray showed a probable oblique nondisplaced fracture of the proximal phalanx of the left ring finger. Patient was given a dose of naproxen 500 mg PO for pain. She was placed in a volar finger splint by the RN. Circulation and sensation were intact. Post-application. She is to follow-up with orthopedic surgery in 5-7 days for evaluation and treatment. Anticipatory guidance and warning symptoms were reviewed with the patient. - Differential Dx/Diagnosis Differential Diagnosis/HQI/PQRI: Contusion, Dislocation, Fracture, Sprain Provider Diagnosis: Nondisplaced fracture of proximal phalanx of left ring finger Discharge - Sign-Out/Discharge Documenting (check all that apply): Patient Departure All imaging exams completed and their final reports reviewed: No - Discharge Plan Condition: Stable Disposition: HOME Patient Education Materials: Finger Fracture (ED) Forms: *Work Release Referrals: No Primary Care Phys,NOPCP [Primary Care Provider] - En Lozada MD [Medical Doctor] - 5 Days (Call for appointment.) Additional Instructions: The x-ray performed in the clinic today showed evidence of a nondisplaced fracture of the proximal phalanx of the left ring finger. Rest the hand as much as possible. You should wear the splint that was applied in the clinic for support and comfort. You may remove to shower but should wear at all other times. Apply ice to the affected area for 15-20 minutes at least 4 times a day to help with the pain and swelling. Elevate the hand to help reduce swelling. Take acetaminophen (Tylenol) or ibuprofen (Advil, Motrin) according to directions as needed for pain. Follow up with orthopedic surgery in 5-7 days if symptoms for evaluation and treatment. Call for an appointment. Seek immediate medical attention if you have severe pain not managed with pain medication, develop numbness or tingling in the finger, or have any worsening of symptoms. - Billing Disposition and Condition Condition: STABLE Disposition: Home
--- NOTE | 2019-03-13 09:19 | UC ---
- Progress Note Progress Note: please contact patient radiologist sees no fracture pt may still follow up with orthopedist Course/Dx - Diagnoses Provider Diagnoses: Nondisplaced fracture of proximal phalanx of left ring finger Discharge - Sign-Out/Discharge Documenting (check all that apply): Patient Departure All imaging exams completed and their final reports reviewed: Yes - Discharge Plan Condition: Stable Disposition: HOME Patient Education Materials: Finger Fracture (ED) Forms: *Work Release Referrals: En Lozada MD [Medical Doctor] - 5 Days (Call for appointment.) No Primary Care Phys,NOPCP [Primary Care Provider] - Additional Instructions: The x-ray performed in the clinic today showed evidence of a nondisplaced fracture of the proximal phalanx of the left ring finger. Rest the hand as much as possible. You should wear the splint that was applied in the clinic for support and comfort. You may remove to shower but should wear at all other times. Apply ice to the affected area for 15-20 minutes at least 4 times a day to help with the pain and swelling. Elevate the hand to help reduce swelling. Take acetaminophen (Tylenol) or ibuprofen (Advil, Motrin) according to directions as needed for pain. Follow up with orthopedic surgery in 5-7 days if symptoms for evaluation and treatment. Call for an appointment. Seek immediate medical attention if you have severe pain not managed with pain medication, develop numbness or tingling in the finger, or have any worsening of symptoms. - Billing Disposition and Condition Condition: STABLE Disposition: Home
== END 2019-03-12 20:48 | disposition home or self-care (01) ==
LOC: UCCORT 19:58
DX: S62.645A Nondisplaced fracture of proximal phalanx of left ring finger, initial encounter for closed fracture (principal); W23.0XXA Caught, crushed, jammed, or pinched between moving objects, initial encounter; Y92.511 Restaurant or cafe as the place of occurrence of the external cause; F17.210 Nicotine dependence, cigarettes, uncomplicated
CPT/HCPCS: 26720; 73140; 99213; A9270-GY; G0463

== ENCOUNTER 2019-03-18 12:44 | Emergency (ER) | payer SELFPAY ==
[2019-03-18 13:04] VITALS: BP 110/71
--- NOTE | 2019-03-18 13:46 | UC ---
Skin Complaint HPI - HPI Summary HPI Summary: 38-year-old woman comes in with a chief complaint of lower lip swelling. She woke up with this morning. Does not see any lesion externally. It is not painful. Patient feels well. Denies any trauma. Does not take any medications. - History of Current Complaint Chief Complaint: UCSkin Time Seen by Provider: 03/18/19 13:23 Stated Complaint: LIP COMPLAINT Hx Last Menstrual Period: 01/04/19 Pain Intensity: 0 - Allergy/Home Medications Allergies/Adverse Reactions: Allergies Allergy/AdvReac Type Severity Reaction Status Date / Time environmental Allergy Eyes Uncoded 03/18/19 13:04 Itchy/Swollen/Red/Watery PMH/Surg Hx/FS Hx/Imm Hx Previously Healthy: Yes Other History Of: Negative For: HIV, Hepatitis B, Hepatitis C, Anticoagulant Therapy - Surgical History Surgical History: Yes Surgery Procedure, Year, and Place: , 2008, [place]; T&A and Ear Tubes , ~1985, [place]. Dental surgery 01/2018 - Family History Known Family History: Positive: Hypertension, Diabetes - Social History Alcohol Use: Rare Substance Use Type: None Smoking Status (MU): Heavy Every Day Tobacco Smoker Type: Cigarettes Amount Used/How Often: 1/2 PPD Length of Time of Smoking/Using Tobacco: 15 Years Have You Smoked in the Last Year: Yes - Immunization History Most Recent Influenza Vaccination: "I never get flu shot" Vaccination Up to Date: Yes Review of Systems All Other Systems Reviewed And Are Negative: Yes Constitutional: Positive: Negative Skin: Positive: Other - SEE HPI Eyes: Positive: Negative ENT: Positive: Negative Respiratory: Positive: Negative Cardiovascular: Positive: Negative Gastrointestinal: Positive: Negative Motor: Positive: Negative Neurovascular: Positive: Negative Musculoskeletal: Positive: Negative Neurological: Positive: Negative Psychological: Positive: Negative Is Patient Immunocompromised?: No Physical Exam Triage Information Reviewed: Yes Appearance: Well-Appearing, No Pain Distress, Well-Nourished Vital Signs: Initial Vital Signs Temp 98.4 F 03/18/19 13:00 Pulse 84 03/18/19 13:00 Resp 16 03/18/19 13:00 BP 110/71 03/18/19 13:00 Pulse Ox 100 03/18/19 13:00 Vital Signs Reviewed: Yes Eye Exam: Normal Eyes: Positive: Conjunctiva Clear ENT: Positive: Pharynx normal, Other - On the left sided aspect of the lower lip along the for management border there is a slight swelling approximately 4 mm in size and soft. No skin ulceration or any changes in the skin topically. Because the same is some surrounding lip and skin. No drainage nontender to palpation. Neck: Positive: Supple Respiratory: Positive: No respiratory distress Musculoskeletal: Positive: Strength Intact, ROM Intact Neurological Exam: Normal Neurological: Positive: Alert, Muscle Tone Normal Psychological: Positive: Age Appropriate Behavior Skin: Positive: Other - On the left sided aspect of the lower lip along the for management border there is a slight swelling approximately 4 mm in size and soft. No skin ulceration or any changes in the skin topically. Because the same is some surrounding lip and skin. No drainage nontender to palpation. Course/Dx - Course Course Of Treatment: The lower lip swelling started this morning. Patient's not taking any medications the swelling is minimal in size. It does not have the appearance of angioedema. There is no change in color to suggest a vascular cause. Folliculitis is a possibility but is not obvious at this time. Overall plan is if it appears to be infectious she'll go ahead start Keflex by mouth. If it does not improve we discussed following up with ENT which the patient would like to do. If her condition worsens she needs to get reevaluated sooner. - Diagnoses Provider Diagnosis: Lip swelling Discharge - Sign-Out/Discharge Documenting (check all that apply): Patient Departure All imaging exams completed and their final reports reviewed: Yes - Discharge Plan Condition: Stable Disposition: HOME Prescriptions: Cephalexin CAP* [Keflex CAP*] 500 mg PO TID #21 cap Referrals: Sohan Pratt MD [Medical Doctor] - Additional Instructions: FOLLOW UP WITH ENT IF YOUR LOWER LIP SWELLING IS NOT COMPLETELY IMPROVED. GET REEVALUATED SOONER IF WORSE; SWELLING INCREASES OR ANY QUESTIONS OR CONCERNS. - Billing Disposition and Condition Condition: STABLE Disposition: Home
== END 2019-03-18 13:54 | disposition home or self-care (01) ==
LOC: UCCORT 12:44
DX: K13.0 Diseases of lips (principal); F17.210 Nicotine dependence, cigarettes, uncomplicated
CPT/HCPCS: 99212; G0463

== ENCOUNTER 2019-08-12 10:56 | Emergency (ER) | payer SELFPAY ==
[2019-08-12 11:14] VITALS: BP 100/64
--- NOTE | 2019-08-12 12:02 | ED ---
Skin Complaint - HPI Summary HPI Summary: 38 yr old female with the complaint of itchy, dry, scaly rash to the low abdomen and the bilateral lower legs. Onset over a year ago. She has been told she has eczema. She has not had fever or chills. 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 No other complaints. - History of Current Complaint Chief Complaint: UCSkin Time Seen by Provider: 08/12/19 11:44 Stated Complaint: SKIN COMP Hx Last Menstrual Period: 07/25/19 Pain Intensity: 4 - Allergy/Home Medications Allergies/Adverse Reactions: Allergies Allergy/AdvReac Type Severity Reaction Status Date / Time environmental Allergy Eyes Uncoded 08/12/19 11:14 Itchy/Swollen/Red/Watery PMH/Surg Hx/FS Hx/Imm Hx Endocrine/Hematology History: Denies: Hx Anticoagulant Therapy, Hx Diabetes, Hx Thyroid Disease Cardiovascular History: Denies: Hx Congestive Heart Failure, Hx Deep Vein Thrombosis, Hx Hypertension , Hx Myocardial Infarction, Hx Pacemaker/ICD Respiratory History: Reports: Hx Asthma Denies: Hx Chronic Obstructive Pulmonary Disease (COPD), Hx Lung Cancer, Hx Pneumonia, Hx Pulmonary Embolism GI History: Denies: Hx Gall Bladder Disease, Hx Gastrointestinal Bleed, Hx Ulcer, Hx Urosepsis History: Denies: Hx Kidney Stones, Hx Renal Disease Sensory History: Denies: Hx Hearing Aid Neurological History: Denies: Hx Dementia, Hx Migraine, Hx Seizures, Hx Transient Ischemic Attacks (TIA) Psychiatric History: Denies: Hx Anxiety, Hx Depression, Hx Panic Disorder, Hx Schizophrenia, Hx Bipolar Disorder - Surgical History Surgery Procedure, Year, and Place: , 2008, [place]; T&A and Ear Tubes , ~1985, [place]. Dental surgery 01/2018 Infectious Disease History: No Infectious Disease History: Denies: Hx Hepatitis, Hx Human Immunodeficiency Virus (HIV), Traveled Outside the in Last 30 Days - Family History Known Family History: Positive: Hypertension, Diabetes - Social History Alcohol Use: Rare Substance Use Type: Reports: None Smoking Status (MU): Heavy Every Day Tobacco Smoker Type: Cigarettes Amount Used/How Often: 1/2 PPD Length of Time of Smoking/Using Tobacco: 15 Years Have You Smoked in the Last Year: Yes Review of Systems Constitutional: Negative Positive: Rash All Other Systems Reviewed And Are Negative: Yes Physical Exam Triage Information Reviewed: Yes Vital Signs On Initial Exam: Initial Vitals Temp Pulse Resp BP Pulse Ox 98.4 F 82 16 100/64 99 08/12/19 11:10 08/12/19 11:10 08/12/19 11:10 08/12/19 11:10 08/12/19 11:10 Vital Signs Reviewed: Yes Appearance: Positive: Well-Appearing, No Pain Distress Skin: Positive: Warm, Other - lichenified skin on the low anterior abdomen, and also on the anterior lower legs consistent with eczema, dermatitis. DC home on medrol dose [place]. Head/Face: Positive: Normal Head/Face Inspection Eyes: Positive: EOMI ENT: Positive: Normal ENT inspection Respiratory/Lung Sounds: Positive: Clear to Auscultation, Breath Sounds Present Cardiovascular: Positive: RRR. Negative: Murmur Abdomen Description: Negative: Distended Musculoskeletal: Positive: Strength/ROM Intact Neurological: Positive: Sensory/Motor Intact, Alert, Oriented to Person Place, Time, CN Intact II-III Psychiatric: Positive: Normal Diagnostics - Vital Signs Vital Signs Temp Pulse Resp BP Pulse Ox 08/12/19 11:10 98.4 F 82 16 100/64 99 - Laboratory Lab Statement: Any lab studies that have been ordered have been reviewed, and results considered in the medical decision making process. Course/Dx - Course Course Of Treatment: 38 yr old with dermatitis. Medrol dose cl[place] fu with primary care referral. - Diagnoses Provider Diagnoses: Eczema Discharge ED - Sign-Out/Discharge Documenting (check all that apply): Patient Departure All imaging exams completed and their final reports reviewed: No Studies - Discharge Plan Condition: Good Disposition: HOME Prescriptions: methylPREDNISolone [Medrol Dosepak 4 MG*] 4 mg PO .SEE [place] INSTRUCTION #1 clifton Patient Education Materials: Eczema (ED) Referrals: [facility] [place] [facility] [Outside] No Primary Care Phys,NOPCP [Primary Care Provider] - - Billing Disposition and Condition Condition: GOOD Disposition: Home
== END 2019-08-12 11:57 | disposition home or self-care (01) ==
LOC: UCCORT 10:56
DX: L30.9 Dermatitis, unspecified (principal); F17.210 Nicotine dependence, cigarettes, uncomplicated; Z91.09 Other allergy status, other than to drugs and biological substances
CPT/HCPCS: 99212; G0463